=== PATIENT | male | born 1980 | race Caucasian/White ===

== ENCOUNTER → 2022-07-21 14:47 | Outpatient (BNVA) | payer MEDICARE, MEDICAID, SELFPAY | PROVIDERS: PCP Pediatrics; Visit Provider Psychiatry & Neurology Psychiatry | DX: F98.8 Other specified behavioral and emotional disorders with onset usually occurring in childhood and adolescence (principal); F84.5 Asperger's syndrome; M45.9 Ankylosing spondylitis of unspecified sites in spine; G47.00 Insomnia, unspecified; Z79.899 Other long term (current) drug therapy | CPT/HCPCS: Q3014 ==

== ENCOUNTER → 2022-11-03 14:15 | Outpatient (BNVA) | payer MEDICARE, MEDICAID, SELFPAY | PROVIDERS: PCP Pediatrics; Visit Provider Psychiatry & Neurology Psychiatry | DX: F84.5 Asperger's syndrome (principal); F98.8 Other specified behavioral and emotional disorders with onset usually occurring in childhood and adolescence; M45.9 Ankylosing spondylitis of unspecified sites in spine | CPT/HCPCS: 99212 ==

== ENCOUNTER → 2023-01-05 14:29 | Outpatient (BNVA) | payer MEDICARE, MEDICAID, SELFPAY | PROVIDERS: PCP Pediatrics; Visit Provider Psychiatry & Neurology Psychiatry | DX: F98.8 Other specified behavioral and emotional disorders with onset usually occurring in childhood and adolescence (principal); F84.5 Asperger's syndrome; M45.9 Ankylosing spondylitis of unspecified sites in spine | CPT/HCPCS: 90833; 99212 ==

== ENCOUNTER 2023-04-22 16:34 | Outpatient (AMB) | payer MEDICARE, MEDICAID, SELFPAY ==
--- NOTE | 2023-04-22 14:12 | MHC.OFFVISPS ---
Intake Intake Visit Reasons: depression Allergies No Known Allergies Allergy (Verified 07/21/22 14:18) Medication List - Last Reconciled 04/22/23 by Jacobo Arroyo MD adalimumab (Humira(CF) Pen) 40 mg subcut Q2W amitriptyline 20 mg (2 x 10 mg) PO BEDTIME 3 months dextroamphetamine-amphetamine 10 mg (Adderall) 10 mg PO BID eplerenone mg PO irbesartan 150 mg PO DAILY omeprazole 20 mg PO DAILY potassium chloride ER 20 mEq PO DAILY sertraline 100 mg PO DAILY HPI- Psychiatric Chief Complaint: depression HPI Narrative: Pts stepfather recently got covid pt ok mood generally ok anxiety re future and election bp has be stable and in good therapeutic range. Patient reports future orientation not overly depressed enjoys anime. Continues to take inject remained disorder. Some petit back pain related to this autoimmune illness. Difficulty following sleep cycle since to enjoy a doing things on his iPad her phone. Feels the amitriptyline helpful sertraline and Adderall does better with immediate release often gets up later Past Psychiatric History: History of Asperger type autistic spectrum disorder patient on disability to graduate college use to work. He did develop connective tissue disease which was debilitating form. History of executive function motivation and ADD in history of depression and anxiety well managed with sertraline and Adderall Mental Status Exam Mental Status Exam Narrative: Mental Status Exam Narrative: Appearance: Casually dressed Behavior: Cooperative appropriate psychomotor: Within normal limits Speech: Normal volume odd prosody Thought proccess logical and goal-directed Thought content: Future oriented some concerns regarding pain Mood: fine Affect: Appropriate to mood flat SI:denies HI:denies VH/AH:none Delusions: None Insight/judgment: Good insight and judgment Memory/cog: Intact Telehealth Telehealth Location of provider rendering services: practice address Location of patient: address on file Patient Identification confirmed using: Name, : Yes Telehealth method: video Patient verbally consented to treatment: Yes Patient verbally consented to billing insurance company: Yes Minutes spent on Phone/Video with Pt.: 20 Assessment and Plan Assessment & Plan (1) Asperger's disorder: Status: Acute Code(s): F84.5 - Asperger's syndrome (2) ADD (attention deficit disorder) without hyperactivity: Status: Acute Code(s): F98.8 - Other specified behavioral and emotional disorders with onset usually occurring in childhood and adolescence (3) Ankylosing spondylitis: Status: Acute Code(s): M45.9 - Ankylosing spondylitis of unspecified sites in spine Plan Patient essentially stable has no significant depressive symptoms continues on sertraline with good effect feels that amitriptyline helpful for sleep and pain syndrome and Adderall really has not interfered with blood pressure management. History of ADD history of lethargy secondary to autoimmune illness. Continue plan of care mood and anxiety symptoms seem to be in check Medications: Refilled amitriptyline 20 mg (2 x 10 mg) PO BEDTIME 180 tabs 1RF 3 months sertraline 100 mg PO DAILY 90 tabs 1RF dextroamphetamine-amphetamine 10 mg (Adderall) administer doses at least 4-6 hours apart; Partial Fill upon patient request. 10 mg PO BID 120 tabs 0RF Counseling and coordination of Care Details: I spent [] minutes reviewing the record, seeing the patient and documenting in the medical record. Counseling provided to the patient/caregiver as outlined below. Addressed patient/caregiver concerns regarding current medication regime including effective adherence. Addressed patient/caregiver concerns regarding diagnosis and prognosis including accuracy of diagnosis, prognosis over time, impact of diagnosis. Addressed patient/caregiver concerns regarding impact of recent stressors. [facility] Medical History (Updated 08/18/22 @ 18:16 by Jacobo Arroyo MD) Ankylosing spondylitis Asperger's disorder Social History: Patient lives with his stepfather and mother. 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
== END 2023-04-22 16:35 | disposition home or self-care (01) ==
LOC: HO.HOP 16:34
PROVIDERS: PCP Pediatrics; Visit Provider Psychiatry & Neurology Psychiatry
DX: F84.5 Asperger's syndrome (principal); F98.8 Other specified behavioral and emotional disorders with onset usually occurring in childhood and adolescence; M45.9 Ankylosing spondylitis of unspecified sites in spine
CPT/HCPCS: 99214

== ENCOUNTER → 2023-04-22 16:34 | Outpatient (BNVA) | payer MEDICARE, MEDICAID, SELFPAY | PROVIDERS: PCP Pediatrics; Visit Provider Psychiatry & Neurology Psychiatry | DX: F98.8 Other specified behavioral and emotional disorders with onset usually occurring in childhood and adolescence (principal) ==

== ENCOUNTER → 2023-09-28 16:51 | Outpatient (BNVA) | payer MEDICARE, MEDICAID, SELFPAY | PROVIDERS: PCP Pediatrics; Visit Provider Psychiatry & Neurology Psychiatry ==